=== PATIENT | male | born 1990 | race Caucasian/White ===

== ENCOUNTER 2016-06-07 14:37 | Emergency (ER) | payer OTHER ==
[~2016-06-07] VITALS: Ht 172.7 cm; Wt 68.0 kg
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
[2016-06-07] MEDS ORDERED: LORAZEPAM 1 MG TABLET ONE (14:47)
--- NOTE | 2016-06-07 14:48 | NUR ---
DR DOYLE AT BEDSIDE FOR EVAL
[2016-06-07] MEDS ORDERED: LORAZEPAM 1 MG TABLET PO ONE (15:00)
--- NOTE | 2016-06-07 16:46 | NUR ---
Patient does not wish to proceed with medical care recommended by Dr. Johnson. Patient given information related to possible complications, up to and including , which could occur as a result of leaving the hospital at this time. Patient verbalizes understanding of risks involved due to leaving against medical advice. Patient has signed AMA form.Patient discharged to home in stable condition. Written and verbal after care instructions given. Patient verbalizes understanding of instruction.
[2016-06-07 16:49] VITALS: BP 142/94
== END 2016-06-07 16:50 | disposition left against medical advice (07) ==
LOC: ER 14:38
DX: T40.1X1A Poisoning by heroin, accidental (unintentional), initial encounter (principal); I48.91 Unspecified atrial fibrillation; Y92.9 Unspecified place or not applicable; F41.9 Anxiety disorder, unspecified
CPT/HCPCS: 93005; 99291; A4606; Z7610